=== PATIENT | female | born 1935 | race Caucasian/White ===

== ENCOUNTER 2018-11-11 21:21 | Emergency (ER) | payer MEDICARE ==
[~2018-11-11] VITALS: Ht 157.5 cm; Wt 61.2 kg
[2018-11-11] MEDS ORDERED: ACETAMINOPHEN 500 MG TAB (TYLENOL) PO ONE (22:00)
--- NOTE | 2018-11-11 22:28 | ED Fall/Injury ---
General Chief Complaint: Head/Cervical Problems Stated Complaint: FELL, HEAD INJ, HEADACHE,RIB PAIN Nursing Triage Note: PT. WAS LEAVING THE [facility]GENTINE REST. AND THINKS SHE CAUGHT HER SHOE ON THE CARPET AND SHE FELL. SHE HAS SWELLING ON THE LEFT SIDE OF HER FOREHEAD WITH BRUISING. SHE C/O HER LEFT BREAST WAS HURTING AND THE LEFT KNEE HAS A SMALL ABRASION. SHE DID NOT HAVE ANY LOC. Source: patient History of Present Illness Date Seen by Provider: Nov 11, 2018 Time Seen by Provider: 21:38 Initial Comments 83-year-old female presenting after having a fall around supper time. She denies losing consciousness. She felt that she had caught her shoe on the carpet and had fallen forward. She had primarily injured her left side of her body. She hit her left forehead and was having pain there as well as the left chest and left knee. She was able to get up and walk. She had gone home but then also had gone out with friends to play cards. While playing card she was feeling lightheaded and woozy. Because this her friends who brought her to the emergency department. She never had any vomiting. She states that she is not having any trouble with vision. She denies taking any blood thinners or aspirin. She also has not taken anything for the pain. Allergies and Home Medications Allergies Coded Allergies: Penicillins (Verified Allergy, Unknown, 11/11/18) Sulfa (Sulfonamide Antibiotics) (Verified Allergy, Unknown, 11/11/18) atorvastatin (Verified Allergy, Unknown, 11/11/18) celecoxib (Verified Allergy, Unknown, 11/11/18) morphine (Verified Allergy, Unknown, 11/11/18) ramipril (Verified Allergy, Unknown, 11/11/18) Patient Home Medication List Home Medication List Reviewed: Yes Review of Systems Review of Systems Constitutional: No chills, No fever, No malaise, No weakness Eyes: Denies Blurred Vision, Denies Drainage, Denies Decreased Acuity, Denies Photophobia, Denies Vision Changes Ears, Nose, Mouth, Throat: denies ear pain, denies ear discharge, denies nose pain, denies nose discharge, denies epistaxis, denies loose teeth Respiratory: No cough, No dyspnea on exertion, No short of breath Cardiovascular: chest pain (left-sided rib and chest wall pain) Gastrointestinal: no symptoms reported; No nausea, No vomiting Genitourinary: no symptoms reported Musculoskeletal: joint pain (left knee pain from where she landed) Skin: other (bruising to the left knee and left forehead) Psychiatric/Neurological: Headache; Denies Numbness, Denies Paresthesia, Denies Seizure, Denies Tingling, Denies Tremors, Denies Weakness Past Mbkzvlt-Rhksgf-Uvmvyf Hx Past Med/Social Hx: Reviewed Nursing Past Med/Soc Hx Patient Social History Recent Foreign Travel: No Contact w/Someone Who Travel: No Recent Infectious Disease Expo: No Physical Abuse: No Sexual Abuse: No Mistreated: No Fear: No Physical Exam Vital Signs Vital Signs - First Documented 11/11/18 11/11/18 21:29 23:36 Temp 97.7 Pulse 88 Resp 18 B/P (MAP) 181/68 (105) Pulse Ox 100 O2 Delivery Room Air Capillary Refill : Less Than 3 Seconds Height, Weight, BMI Height: 5'2.00" Weight: 135lbs. oz. 61.259950qn; BMI Method:Stated General Appearance: WD/WN, no apparent distress HEENT: PERRL/EOMI, normal ENT inspection, TMs normal, pharynx normal Neck: non-tender, full range of motion, supple, normal inspection Cardiovascular: normal peripheral pulses, regular rate, rhythm Respiratory: chest non-tender, lungs clear, normal breath sounds, no re spiratory distress, no accessory muscle use Gastrointestinal: normal bowel sounds, non tender, soft, no pulsatile mass Back: normal inspection, no CVA tenderness, no vertebral tenderness Extremities: normal range of motion, no calf tenderness, normal capillary refill, other (mild tenderness over her left patella where she has bruising from the fall) Neurologic/Psychiatric: director drug II-XII nml as tested, no motor/sensory deficits, alert, normal mood/affect, oriented x 3 Skin: warm/dry, other (mild bruising to her left patella and bruising and swelling to her left forehead) Winkelman Coma Score Best Eye Response: (4) Open Spontaneously Best Verbal Response: (5) Oriented Best Motor Response: (6) Obeys Commands Winkelman Total: 15 Progress/Results/Core Measures Results/Orders My Orders Orders - ENA SINGH MD Ct Head/Cervical Spine Wo (11/11/18 21:58) Ribs/Unilateral With Chest (6/2/19 21:58) Knee 3 View Left (11/11/18 21:58) Ice: Apply To Affected Area (11/11/18 21:58) Acetaminophen Tablet (Tylenol Tablet) (11/11/18 22:00) Medications Given in ED Current Medications Medications Dose Ordered Sig/Martha Route Start Time Stop Time Status Last Admin Dose Admin Acetaminophen 1,000 mg ONCE ONCE PO 11/11/18 22:00 11/11/18 22:01 DC 11/11/18 22:02 1,000 MG Vital Signs/I&O 11/11/18 11/11/18 21:29 23:36 Temp 97.7 97.7 Pulse 88 88 Resp 18 18 B/P (MAP) 181/68 (105) 181/68 (105) Pulse Ox 100 O2 Delivery Room Air Nasal Cannula Blood Pressure Mean: 105 Progress Progress Note #1: Progress Note Give Tylenol for pain. Ice and elevation of her head to help with pain and swelling. Check CT of her head and cervical spine to evaluate for fracture or intracranial hemorrhage. X-rays of her chest and left ribs to look for fractures. X-ray of her left knee to look for fractures Progress Note #2: Progress Note No acute abnormality seen on the head and cervical spine. The x-rays of the chest and ribs as well as the left knee were reviewed by myself and did not demonstrate any acute fracture or dislocation. Patient was counseled on results and stated that she was feeling better after the acetaminophen. Counseled on return and follow-up precautions. Diagnostic Imaging Diagonstic Imaging: Xray Plain Films/CT/US/NM/MRI: chest (and ribs) Comments I personally reviewed the chest x-ray and left rib films. On my review of the films there were no definite fractures or dislocations. There is no pneumothorax or acute infiltrate. Reviewed: Reviewed by Me Diagonstic Imaging: Xray Plain Films/CT/US/NM/MRI: knee (left) Comments No acute fracture or dislocation on my review of the 3 view films of the left knee. Hardware appears in place without damage Reviewed: Reviewed by Me Diagonstic Imaging: CT Plain Films/CT/US/NM/MRI: c-spine, head Comments CT head shows no acute findings and there is a remote infarct involving the right posterior frontal lobe. CT cervical spine shows no acute fracture or subluxation. Moderate multilevel cervical spondylosis. Radiologist was Dr. Jono Baca DO, Read at [id number] and faxed at [phone] Reviewed: Reviewed [place] Study Departure Impression Primary Impression: Concussion without loss of consciousness Qualified Codes: S06.0X0A - Concussion without loss of consciousness, initial encounter Additional Impressions: Traumatic hematoma of forehead Qualified Codes: S00.83XA - Contusion of other part of head, initial encounter Contusion of rib on left side Qualified Codes: S20.212A - Contusion of left front wall of thorax, initial encounter Contusion of left knee, initial encounter Fall Qualified Codes: W19.XXXA - Unspecified fall, initial encounter Disposition: HOME, SELF-CARE Condition: Stable Departure-Patient Inst. Decision time for Depature: 23:15 Referrals: KELIN SAMPSON MD (PCP/Family) Primary Care Physician Patient Instructions: Bruised Rib (DC), Contusion (DC), Minor Head Injury (DC), Concussion, Adult (DC) Add. Discharge Instructions: Stay well hydrated and get plenty of rest Check with clinic for continued concerns Ice 15-20 minutes every few hours as needed for pain and swelling Sleep with your head elevated 30-45 degrees to limit swelling and pain for the next few days. All discharge instructions reviewed with patient and/or family. Voiced understanding. ENA SINGH MD Nov 11, 2018 22:28
[2018-11-11 23:36] VITALS: BP 181/68
--- NOTE | 2018-11-12 06:22 | Diagnostic Imaging Report ---
INDICATION: Pain, swelling. COMPARISON: None available. TECHNIQUE: 3 radiographs of left knee dated 11/11/2018. 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 No acute fracture or dislocation. No destructive osseous process. No suspicious radiopaque foreign body. IMPRESSION: Left total knee arthroplasty without acute osseous abnormality. Dictated by: Dictated on workstation # [id number]
--- NOTE | 2018-11-12 06:23 | Diagnostic Imaging Report ---
INDICATION: Pain. COMPARISON: None available. TECHNIQUE: 4 radiographs of the chest and left-sided ribs dated 11/11/2018. FINDINGS: The cardiac silhouette is within normal in size. No significant pulmonary vascular congestion. Senescent changes in the lungs without focal pulmonary opacity. Metallic device is noted overlying the cardiac silhouette. No significant pleural effusion or pneumothorax. No displaced or healing rib fracture. IMPRESSION: No displaced or healing rib fracture. No significant pleural effusion or pneumothorax. Dictated by: Dictated on workstation # [id number]
--- NOTE | 2018-11-12 06:40 | Diagnostic Imaging Report ---
PROCEDURE: CT head and CT cervical spine without contrast. TECHNIQUE: Multiple contiguous axial images were obtained through the brain and cervical spine without the use of intravenous contrast. Sagittal and coronal reformations through the cervical spine were then performed. Auto Exposure Controls were utilized during the CT exam to meet ALARA standards for radiation dose reduction. INDICATION: Fall, pain. COMPARISON: None available. FINDINGS: No intracranial hemorrhage. Focal hypodensity is noted within the posterior aspect of the right frontal lobe with associated encephalomalacia. Mild bilateral calcifications within the basal ganglia. Chronic-appearing lacunar infarction within the right caudate head. No intracranial mass, mass effect, midline shift, herniation, hydrocephalus, or extra-axial fluid collection. No CT evidence of an acute ischemic infarction. Left periorbital soft tissue swelling. Bilateral ocular lenses are absent. The globes appear intact. The calvarium and extracalvarial soft tissues are otherwise unremarkable. The paranasal sinuses are clear. Minimal retrolisthesis of C4 on C5, appearing degenerative in nature. Alignment of the cervical spine is otherwise well maintained. Alignment of the atlanto-occipital joint is well maintained. Besides endplate degenerative changes, vertebral body heights are well maintained. Moderate to severe disc space height loss at C4/C5 and C5/C6 and C6/C7 with moderate disc space height loss at C3/C4 and C7/T1. 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 No acute fracture or dislocation. No destructive osseous process. Scattered facet joint degenerative changes and uncovertebral joint hypertrophy. There is resulting multilevel neuroforaminal stenosis, greatest at C3/C4 and C4/C5, particularly on the right where it is high-grade. High-grade left neuroforaminal stenosis also present at C5/C6. Multilevel central canal stenosis is also present throughout the cervical spine, particularly at C4/C5 and C5/C6. Calcified granuloma within the right upper lobe. Scattered vascular calcifications. IMPRESSION: 1. No acute intracranial abnormality. 2. No acute osseous abnormality within the cervical spine. 3. Chronic-appearing infarction within the right frontal lobe. 4. Left periorbital soft tissue swelling without underlying fracture. 5. Moderate to severe multilevel degenerative changes. Agree with preliminary interpretation. Dictated by: Dictated on workstation # [id number]
== END 2018-11-11 23:37 | disposition home or self-care (01) ==
LOC: EDUNIT# 21:21 → ER FS 21:23
DX: S06.0X0A Concussion without loss of consciousness, initial encounter (principal); S20.212A Contusion of left front wall of thorax, initial encounter; S80.02XA Contusion of left knee, initial encounter; R40.2142 Coma scale, eyes open, spontaneous, at arrival to emergency department; R40.2252 Coma scale, best verbal response, oriented, at arrival to emergency department; R40.2362 Coma scale, best motor response, obeys commands, at arrival to emergency department; Z88.0 Allergy status to penicillin; Z88.2 Allergy status to sulfonamides; Z88.1 Allergy status to other antibiotic agents; Z88.5 Allergy status to narcotic agent; Z88.8 Allergy status to other drugs, medicaments and biological substances; W01.0XXA Fall on same level from slipping, tripping and stumbling without subsequent striking against object, initial encounter; Y92.511 Restaurant or cafe as the place of occurrence of the external cause
CPT/HCPCS: 70450; 71101; 72125; 73562

== ENCOUNTER 2018-11-13 14:06 | Emergency (ER) | payer MEDICARE ==
[~2018-11-13] VITALS: Ht 157.5 cm; Wt 61.2 kg
[2018-11-13] MEDS ORDERED: ACETAMINOPHEN 325 MG TABLET PO ONE (14:30)
--- NOTE | 2018-11-13 14:45 | NUR ---
Pt was initially triaged by PCCT for RN with vitals and chief c/o 1415. RN to room to greet pt and give Tylenol 975 mg po as per Dr order for c/o headache continued since fall11/11/18 when evaluated in ER and released. Pt spoke with her PCP that recommended her to return to ER.
--- NOTE | 2018-11-13 15:24 | ED Head Injury ---
General Chief Complaint: Head/Cervical Problems Stated Complaint: BALANCE ISSUE, FEELS FOGGY History of Present Illness Date Seen by Provider: Nov 13, 2018 Time Seen by Provider: 14:00 Initial Comments The patient is an 83-year-old female with a history of hypertension and hyperlipidemia as well as acid reflux, not on any blood thinners. 2 days ago she had a ground-level fall after tripping on some carpet at home and sustained a left periorbital contusion. She was seen here in the [facility] emergency in [facility] and CT scan of head and cervical spine were without evidence of acute process and the patient was discharged home to follow-up. Today she called her primary care physician reporting some persistent head pain and a feeling of "fogginess" at times, although she has not had any vomiting and is alert and oriented 4 and pleasantly and appropriately interactive on initial evaluation the emergency department. Her primary care physician instructed her to come to the emergency department for a repeat CT scan of her head. She denies any other symptoms today and specifically denies fevers, nausea or vomiting, focal weakness, numbness, tingling, neck stiffness, vision changes, shortness of breath or chest pain, severe pain to any other part of her body. Allergies and Home Medications Allergies Coded Allergies: Penicillins (Verified Allergy, Unknown, 11/11/18) Sulfa (Sulfonamide Antibiotics) (Verified Allergy, Unknown, 11/11/18) atorvastatin (Verified Allergy, Unknown, 11/11/18) celecoxib (Verified Allergy, Unknown, 11/11/18) morphine (Verified Allergy, Unknown, 11/11/18) ramipril (Verified Allergy, Unknown, 11/11/18) Patient Home Medication List Home Medication List Reviewed: Yes Review of Systems Review of Systems Constitutional: see HPI All Other Systems Reviewed Negative Unless Noted: Yes Past Ycbuczn-Lsemqp-Htwvea Hx Past Med/Social Hx: Reviewed Nursing Past Med/Soc Hx Family Medical History Reviewed Nursing Family Hx Physical Exam Vital Signs Capillary Refill : Height, Weight, BMI Height: 5'2.00" Weight: 135lbs. oz. 61.495279zr; BMI Method:Stated General Appearance: no apparent distress This is an elderly female appearing nontoxic and in no acute distress. Head is normocephalic and with a developing/healing left periorbital contusion. Neck is supple and nontender. Oropharynx is moist. Lungs are clear to auscul tation at all stations. There is normal S1 and S2 without rubs or gallops and capillary refill is appropriate, less than 2 seconds globally. Abdomen is soft, nontender nondistended. Skin is warm and dry without cyanosis, clubbing or edema. Psychiatrically, patient demonstrates appropriate mood and affect and is alert. From a neurologic standpoint, cranial nerves II through XII are intact and there are no lateralizing deficits noted. Speech is normal. Leg which is normal. Coordination is normal. There is no dysmetria with finger to nose and heel to pereyra bilaterally. Strength is 5 out of 5 in all joints of bilateral upper and lower extremities. Sensation is intact light touch in bilateral upper and lower extremity. The patient Mo[place] to the narrow, steady gait. She is alert and oriented 4. Progress/Results/Core Measures Results/Orders My Orders Orders - LUKASZ ELLIS MD Ct Head Wo (11/13/18 14:25) Acetaminophen Tablet/Caplet (Tylenol T (11/13/18 14:30) Medications Given in ED Current Medications Medications Dose Ordered Sig/Martha Route Start Time Stop Time Status Last Admin Dose Admin Acetaminophen 975 mg ONCE ONCE PO 11/13/18 14:30 11/13/18 14:31 DC 11/13/18 14:45 975 MG Comment Clinical examination reassuringelderly patient with a ground-level fall a few days ago, now with healing left periorbital contusion and some mild symptoms suggestive of concussion. CT head is negative today for evidence of any acute process. Patient feels comfortable going home and using Tylenol as needed for her symptoms. She is to follow-up with her primary care physician in next 1-2 days and return immediately if symptoms worsen or other new symptoms or concerns develop. All cushions are answered. We'll proceed with discharge home at this time. Diagnostic Imaging Diagonstic Imaging: CT Comments CT HEAD WO CLINICAL INDICATION: Patient status post fall on 11/11/2018. Patient still not feeling right. EXAM: Axial CT scan of the brain performed without IV contrast. COMPARISON: CT scan of the brain without contrast dated 11/11/2018. FINDINGS: There is no evidence of interval acute cerebral infarct, intracranial hemorrhage, brain herniation, or midline shift. There is no hydrocephalus. Stable small chronic cerebral infarct involving the posterior right frontal lobe. The brain parenchymal volume appears appropriate for patient's age. Basal cisterns are unremarkable. The extracranial soft tissue, skull, and orbits are unremarkable. Paranasal sinuses and mastoid air cells are unremarkable. IMPRESSION: 1: Stable CT scan of the brain with no evidence of acute intracranial process. 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 Dictated on workstation # [id number] Departure Impression Primary Impression: Brain concussion Qualified Codes: S06.0X0A - Concussion without loss of consciousness, initia l encounter Disposition: HOME, SELF-CARE Condition: Improved Departure-Patient Inst. Referrals: KELIN SAMPSON MD (PCP/Family) Primary Care Physician Patient Instructions: Concussion, Adult (DC) Add. Discharge Instructions: Follow-up very closely with her primary care physician in the next 1-2 days. Return immediately if symptoms worsen or if other new symptoms of concern develop. You may take Tylenol as needed for symptoms as discussed. LUKASZ ELLIS MD Nov 13, 2018 15:24
--- NOTE | 2018-11-13 15:38 | Diagnostic Imaging Report ---
CLINICAL INDICATION: Patient status post fall on 11/11/2018. Patient still not feeling right. EXAM: Axial CT scan of the brain performed without IV contrast. COMPARISON: CT scan of the brain without contrast dated 11/11/2018. FINDINGS: There is no evidence of interval acute cerebral infarct, intracranial hemorrhage, brain herniation, or midline shift. There is no hydrocephalus. Stable small chronic cerebral infarct involving the posterior right frontal lobe. The brain parenchymal volume appears appropriate for patient's age. Basal cisterns are unremarkable. The extracranial soft tissue, skull, and orbits are unremarkable. Paranasal sinuses and mastoid air cells are unremarkable. IMPRESSION: 1: Stable CT scan of the brain with no evidence of acute intracranial process. 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 Dictated by: Dictated on workstation # [id number]
[2018-11-13 16:24] VITALS: BP 129/41
== END 2018-11-13 16:24 | disposition home or self-care (01) ==
LOC: EDUNIT# 14:06 → ER FS 14:08
DX: S06.0X0A Concussion without loss of consciousness, initial encounter (principal); I10 Essential (primary) hypertension; E78.5 Hyperlipidemia, unspecified; K21.9 Gastro-esophageal reflux disease without esophagitis; Z88.0 Allergy status to penicillin; Z88.2 Allergy status to sulfonamides; Z88.1 Allergy status to other antibiotic agents; Z88.5 Allergy status to narcotic agent; Z88.8 Allergy status to other drugs, medicaments and biological substances; W01.0XXA Fall on same level from slipping, tripping and stumbling without subsequent striking against object, initial encounter; Y92.009 Unspecified place in unspecified non-institutional (private) residence as the place of occurrence of the external cause
CPT/HCPCS: 70450

== ENCOUNTER → 2018-12-05 | Outpatient (CLI) | payer MEDICARE ==
--- NOTE | 2018-12-05 10:40 | Diagnostic Imaging Report ---
PROCEDURE: CT head without contrast. TECHNIQUE: Multiple contiguous axial images were obtained through the brain without the use of intravenous contrast. Auto Exposure Controls were utilized during the CT exam to meet ALARA standards for radiation dose reduction. INDICATION: Head injury 3 weeks ago with balance disturbance. COMPARISON: Comparison is made with head CT from 11/13/2018. FINDINGS: The ventricles and sulci are within normal limits. There is an area of encephalomalacia in the right middle cerebral artery territory consistent with prior infarct. This is similar to prior exam. No sulcal effacement or midline shift is seen. No acute intra-axial or extra-axial hemorrhage is detected. Cisterns are patent. Visualized paranasal sinuses are clear. IMPRESSION: Stable chronic changes. No acute intracranial process is detected. Dictated by: Dictated on workstation # [id number]
== END ==
LOC: RAD FS 10:21
PROVIDERS: ATTEND Family Medicine
DX: S09.90XA Unspecified injury of head, initial encounter (principal); I69.993 Ataxia following unspecified cerebrovascular disease
CPT/HCPCS: 70450

== ENCOUNTER → 2018-12-17 | Outpatient (CLI) | payer MEDICARE ==
--- NOTE | 2018-12-17 12:01 | Diagnostic Imaging Report ---
PROCEDURE: CT cervical spine without contrast. TECHNIQUE: Multiple contiguous axial images were obtained through the cervical spine without the use of intravenous contrast. Sagittal and coronal reformations were then performed. Auto Exposure Controls were utilized during the CT exam to meet ALARA standards for radiation dose reduction. INDICATION: Fall sustained six weeks ago, has had continuous pain and stiffness in the neck since that insult. COMPARISON: I have no priors. FINDINGS: There is incomplete fusion of the posterior ring of C1 as an incidental variant. The skull base appeared intact. There is no mastoid effusion. Reconstruction views showed some straightening of cervical lordosis with slight retrolisthesis of C4 on C5, grade 1, believed to be on a degenerative basis. No cervical fracture or paravertebral hematoma is present. No bony destructive process. Some biapical pleural-parenchymal scarring, partly calcified on the right as a chronic finding. There are atherosclerotic vascular calcifications, left greater than right carotids. The prevertebral and retropharyngeal spaces appeared unremarkable. Degenerative changes throughout the cervical spine involve discs, endplates, facets, and uncovertebral joints with multilevel stenoses. C1-C2 level revealed no convincing evidence of canal or substantial foraminal encroachment. C2-C3: Facet arthrosis and uncovertebral joint spurring result in moderate severity of right-sided foraminal stenosis and mild left foraminal narrowing with mild canal stenosis. C3-C4: Bony hypertrophy results in aicq-qi-zdeblgry left and fxtmdgyw-ux-xhqpra right foraminal stenosis with moderate central canal narrowing. C4-C5: Endplate osteophytes, disc material, and facet arthrosis result in severe central canal and severe biforaminal stenoses. C5-C6: There is rzlpvuhb-un-bunbdt central canal stenosis with endplate osteophytes and bulging partly calcified disc material. There is severe left and moderate right neuroforaminal narrowing. C6-C7: There is right and mild left foraminal stenosis in addition to xuko-tc-xjjcpevu canal narrowing. C7-T1: There is no substantial canal stenosis. The left neuroforamen is at least mildly narrowed. IMPRESSION: 1. No cervical fracture or traumatic malalignment. 2. Advanced degenerative changes throughout the cervical spine with substantial multilevel canal and foraminal stenoses, listed level by level above. 3. Carotid atherosclerotic vascular disease. Dictated by: Dictated on workstation # [id number]
== END ==
LOC: RAD FS 10:24
PROVIDERS: ATTEND Nurse Practitioner Family
DX: M47.812 Spondylosis without myelopathy or radiculopathy, cervical region (principal); I65.29 Occlusion and stenosis of unspecified carotid artery; M48.02 Spinal stenosis, cervical region
CPT/HCPCS: 72125

== ENCOUNTER 2019-04-17 13:05 | Emergency (ER) | payer MEDICARE ==
[~2019-04-17] VITALS: Ht 157.4 cm; Wt 63.1 kg
--- NOTE | 2019-04-17 13:53 | ED General ---
General Chief Complaint: Dizziness/Syncope Stated Complaint: HEADACHE; HEAD PRESSURE; LIGHT HEADED Source of Information: Patient Exam Limitations: No Limitations History of Present Illness Date Seen by Provider: Apr 17, 2019 Time Seen by Provider: 13:45 Initial Comments Patient presents with onset of dizziness when she woke up this morning. States that she felt on steady and off balance when she stood up, but that it got better and she was able to go about the house as she needed to. A few hours later she states it came back and she was dizzy again with some pressure type headache on top of her head. Admits history of vertigo in the past, although infrequent. Does not take medicine for vertigo. Denies any weakness, speech difficulty or confusion. No recent illness, denies fever or chills. Allergies and Home Medications Allergies Coded Allergies: Penicillins (Verified Allergy, Unknown, 11/11/18) Sulfa (Sulfonamide Antibiotics) (Verified Allergy, Unknown, 11/11/18) atorvastatin (Verified Allergy, Unknown, 11/11/18) celecoxib (Verified Allergy, Unknown, 11/11/18) morphine (Verified Allergy, Unknown, 11/11/18) ramipril (Verified Allergy, Unknown, 11/11/18) Home Medications Meclizine HCl 25 Mg Tablet, 25 MG PO Q6H PRN for VERTIGO Prescribed by: LUIS ZAMARRIPA on 04/17/19 1407 Patient Home Medication List Home Medication List Reviewed: Yes Review of Systems Review of Systems Constitutional: No chills, No diaphoresis; dizziness; No fever, No malaise, No weakness, No weight gain, No weight loss EENTM: no symptoms reported; No ear discharge, No ear pain, No blurred vision, No double vision, No eye pain, No hoarseness, No epistaxis, No nose congestion, No nose pain, No throat pain, No throat swelling Respiratory: No cough, No dyspnea on exertion, No wheezing Cardiovascular: No chest pain, No palpitations Gastrointestinal: No diarrhea, No loss of appetite, No nausea, No vomiting Musculoskeletal: No back pain, No joint pain Skin: No change in color, No rash Psychiatric/Neurological: Headache; Denies Numbness, Denies Paresthesia, Denies Pre-Existing Deficit, Denies Seizure, Denies Tremors, Denies Weakness Past Odclifq-Tzolxy-Wugbdt Hx Past Med/Social Hx: Reviewed Nursing Past Med/Soc Hx Patient Social History Recent Foreign Travel: No Recent Hopitalizations: No Seasonal Allergies Seasonal Allergies: No Past Medical History Surgeries: Yes (LAVH W/ BSO, ANTERIOR REPAIR, SSLS, PBS/CYSTO) Bladder Surgery, Hysterectomy Respiratory: No Cardiac: Yes Hypertension 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 oz. 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 Norm as Tested; No Abnormal Gait, No Aphasia, No Depressed Affect, No Disoriented, No Facial Droop, No Motor Weakness, No Sensory Deficit Skin: Normal Color, Warm/Dry; No Petechia, No Rash Progress/Results/Core Measures Suspected Sepsis SIRS Temperature: Pulse: Respiratory Rate: Blood Pressure / Mean: Results/Orders My Orders Orders - ROVENSTINELUIS DO Ct Head Wo (04/17/19 13:37) Meclizine Tablet (Antivert Tablet) (04/17/19 14:15) Medications Given in ED Current Medications Medications Dose Ordered Sig/Martha Route Start Time Stop Time Status Last Admin Dose Admin Meclizine HCl 25 mg ONCE ONCE PO 04/17/19 14:15 04/17/19 14:15 DC 04/17/19 14:13 25 MG Vital Signs/I&O 04/17/19 04/17/19 13:05 14:15 Temp 36.6 36.6 Pulse 76 76 Resp 16 16 B/P (MAP) 186/59 (101) 186/59 (101) Pulse Ox 98 98 O2 Delivery Room Air Capillary Refill : Departure Impression Primary Impression: Dizziness Disposition: 01 HOME, SELF-CARE Condition: Stable Departure-Patient Inst. Decision time for Depature: 14:10 Referrals: KELIN SAMPSON MD (PCP/Family) Primary Care Physician Patient Instructions: Vertigo (a Type of Dizziness) (DC) Scripts Meclizine HCl (Meclizine HCl) 25 Mg Tablet 25 MG PO Q6H PRN for VERTIGO, #20 TAB Prov: LUIS ZAMARRIPA DO 04/17/19 LUIS ZAMARRIPA DO Apr 17, 2019 13:53 POS
--- NOTE | 2019-04-17 13:57 | Diagnostic Imaging Report ---
PROCEDURE: CT head without contrast. TECHNIQUE: Multiple contiguous axial images were obtained through the brain without the use of intravenous contrast. Auto Exposure Controls were utilized during the CT exam to meet ALARA standards for radiation dose reduction. INDICATION: Pain and elevated head pressure, falling, stroke was sustained in 1999. COMPARISON: Study compared to 12/05/2018. 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 No findings of focal or generalized cerebral edema. There is no evidence for cerebral hemorrhage. Some mild periventricular white matter small vessel sequelae and intracranial atherosclerotic vascular calcifications are chronic. No significant volume loss. No hydrocephalus. No hemorrhage. No acute-appearing abnormality. IMPRESSION: Stable chronic findings. Dictated by: Dictated on workstation # [id number]
[2019-04-17] MEDS ORDERED: MECL-106 PO (14:07)
[2019-04-17 14:15] VITALS: BP 186/59
[2019-04-17] MEDS ORDERED: MECLIZINE 25 MG (ANTIVERT) TAB PO ONE (14:15)
== END 2019-04-17 14:15 | disposition home or self-care (01) ==
LOC: EDUNIT# 13:05 → ER FS 13:07
DX: R42 Dizziness and giddiness (principal); I10 Essential (primary) hypertension; K21.9 Gastro-esophageal reflux disease without esophagitis; Z88.0 Allergy status to penicillin; Z88.2 Allergy status to sulfonamides; Z88.5 Allergy status to narcotic agent; Z88.8 Allergy status to other drugs, medicaments and biological substances; Z90.710 Acquired absence of both cervix and uterus
CPT/HCPCS: 70450

== ENCOUNTER → 2020-04-27 | Outpatient (CLI) | payer MEDICARE ==
[~2020-04-27] MED LIST: MECL-149 PO
== END ==
LOC: CARD 14:00
PROVIDERS: ATTEND Family Medicine
DX: I34.0 Nonrheumatic mitral (valve) insufficiency (principal); I35.8 Other nonrheumatic aortic valve disorders
CPT/HCPCS: 93306

== ENCOUNTER → 2021-05-08 | Outpatient (CLI) | payer MEDICARE ==
[2021-05-08 16:06] LABS: CLARITY,URINE CLOUDY; COLOR,URINE YELLOW; GLUCOSE, URINE (UA) NEGATIVE (NEGATIVE); KETONES,URINE NEGATIVE (NEGATIVE); PROTEIN,URINE TRACE (NEGATIVE)
[2021-05-08 16:07] LABS: BACTERIA,URINE NEGATIVE /HPF; BILIRUBIN,URINE NEGATIVE (NEGATIVE); LEUKOCYTE ESTERASE ,URINE 1+ (NEGATIVE); NITRITE,URINE NEGATIVE (NEGATIVE); WBC,URINE TNTC /HPF
== END ==
LOC: PVFS 15:30
PROVIDERS: ATTEND Family Medicine
DX: R35.0 Frequency of micturition (principal); R30.9 Painful micturition, unspecified
CPT/HCPCS: 81000; 87088

== ENCOUNTER 2022-03-01 23:33 | Emergency (ER) | payer MEDICARE ==
[~2022-03-01] VITALS: Ht 157.4 cm; Wt 56.2 kg
[2022-03-01] MEDS ORDERED: ACETAMINOPHEN 500 MG TAB (TYLENOL) PO ONE (23:45)
[2022-03-01] MEDS ORDERED: diphenhydrAMINE 25 MG TAB (BENADRYL) PO ONE (23:45)
--- NOTE | 2022-03-01 23:46 | ED General ---
General Chief Complaint: Oral/Throat Problems Stated Complaint: POSS ALLERGIC REACTION Source of Information: Patient, EMS Exam Limitations: No Limitations History of Present Illness Date Seen by Provider: Mar 01, 2022 Time Seen by Provider: 23:35 Initial Comments 86-year-old female that recently was diagnosed with a perirectal abscess started on clindamycin recently coming in due to concerns for an allergic reaction. She felt like after her 7 PM dose her throat started to feel scratchy and her lips started to feel like they are a little bit more red than usual. Denies any rash anywhere, wheezing, vomiting, chest pain, shortness of breath, abdominal pain, nausea, diarrhea, weakness, numbness, or any other concerns. Has tolerated the antibiotic in the past without difficulty. Allergies and Home Medications Allergies Coded Allergies: Penicillins (Verified Allergy, Unknown, 11/11/18) Sulfa (Sulfonamide Antibiotics) (Verified Allergy, Unknown, 11/11/18) atorvastatin (Verified Allergy, Unknown, 11/11/18) celecoxib (Verified Allergy, Unknown, 11/11/18) morphine (Verified Allergy, Unknown, 11/11/18) ramipril (Verified Allergy, Unknown, 11/11/18) Patient Home Medication List Home Medication List Reviewed: Yes Meclizine HCl (Meclizine HCl) 25 Mg Tablet, 25 MG PO Q6H PRN for VERTIGO Prescribed by: LUIS ZAMARRIPA on 04/17/19 4897 Review of Systems Review of Systems Constitutional: No fever EENTM: see HPI Respiratory: no symptoms reported Cardiovascular: no symptoms reported Gastrointestinal: no symptoms reported Genitourinary: no symptoms reported Musculoskeletal: no symptoms reported Skin: no symptoms reported Psychiatric/Neurological: No Symptoms Reported Hematologic/Lymphatic: No Symptoms Reported Immunological/Allergic: no symptoms reported All Other Systems Reviewed Negative Unless Noted: Yes Past Tsoroyu-Rizyba-Dajtkv Hx Patient Social History Tobacco Use?: No Seasonal Allergies Seasonal Allergies: No Past Medical History Surgeries: Yes (LAVH W/ BSO, ANTERIOR REPAIR, SSLS, PBS/CYSTO) Bladder Surgery, Cardiac, Hysterectomy Respiratory: No Cardiac: Yes Hypertension 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 oz. 61.475053hw; 25.00 BMI Method:Stated General Appearance: No Apparent Distress, WD/WN Eyes: Bilateral Eye Normal Inspection, Bilateral Eye PERRL, Bilateral Eye EOMI HEENT: PERRL/EOMI, Normal ENT Inspection, Pharynx Normal Neck: Full Range of Motion, Normal Inspection, Non Tender, Supple Respiratory: Chest Non Tender, Lungs Clear, Normal Breath Sounds, No Accessory Muscle Use, No Respiratory Distress Cardiovascular: Regular Rate, Rhythm, No Edema, Normal Peripheral Pulses Gastrointestinal: Normal Bowel Sounds, Non Tender, Soft; No Distended, No Guarding Back: Normal Inspection Extremity: Normal Capillary Refill, Normal Inspection, Normal Range of Motion, Non Tender, No Calf Tenderness, No Pedal Edema Neurologic/Psychiatric: Alert, No Motor/Sensory Deficits, Normal Mood/Affect Skin: Normal Color, Warm/Dry Lymphatic: No Adenopathy Progress/Results/Core Measures Suspected Sepsis SIRS Temperature: Pulse: Respiratory Rate: Blood Pressure / Mean: Results/Orders My Orders Orders - DREW REID MD Acetaminophen Tablet (Tylenol Tablet) (03/01/22 23:45) Diphenhydramine Tablet (Benadryl Tablet) (03/01/22 23:45) Medications Given in ED Current Medications Medications Dose Ordered Sig/Martha Route Start Time Stop Time Status Last Admin Dose Admin Acetaminophen 1,000 mg ONCE ONCE PO 03/01/22 23:45 03/01/22 23:46 DC 03/01/22 23:52 1,000 MG Diphenhydramine HCl 12.5 mg ONCE ONCE PO 03/01/22 23:45 03/01/22 23:46 DC 03/01/22 23:52 12.5 MG Vital Signs/I&O 03/01/22 23:35 Temp 36.5 Pulse 75 Resp 15 B/P (MAP) 187/68 (107) Pulse Ox 98 O2 Delivery Room Air Capillary Refill : Progress Note : Progress Note 86-year-old female with above history coming in to check to see if she is having allergic reaction. ABCs were intact and vitals were stable on presentation. Her oropharynx appears normal to me, she is breathing comfortably, I do not see any rash, or any other signs of any type of allergic reaction. We will give her some Tylenol for her sore throat and 12 and half milligrams of Benadryl to see if that will help with any itching in her throat. We will continue to monitor her and reevaluate for any signs of allergic reaction. On repeat exam her throat and lips continue to appear normal. I am not seeing any changes in her skin at all. Unclear what exactly she is feeling, but it does not appear like an allergic reaction. I will have her continue to monitor at home. She can try Claritin for the scratchy throat. Departure Impression Primary Impression: Throat discomfort Disposition: 01 HOME, SELF-CARE Condition: Stable Departure-Patient Inst. Decision time for Depature: 00:14 Referrals: KELIN SAMPSON MD (PCP/Family) Primary Care Physician Patient Instructions: Sore Throat, Adult ED Add. Discharge Instructions: We are not detecting any signs of an allergic reaction. Continue to monitor yourself for any rash across her body. You can try the Claritin for the scratchy throat. Continue to use eyedrops for dry eyes. Follow-up with your doctor in the next couple days if things are not improving. DREW REID MD Mar 01, 2022 23:46
[2022-03-02 01:10] VITALS: BP 164/54
== END 2022-03-02 01:10 | disposition home or self-care (01) ==
LOC: EDUNIT# 23:33 → ER FS 23:37
DX: R07.0 Pain in throat (principal); Z28.310 Unvaccinated for COVID-19
CPT/HCPCS: 99283

== ENCOUNTER → 2022-08-19 | Outpatient (CLI) | payer MEDICARE ==
--- NOTE | 2022-08-19 17:00 | Diagnostic Imaging Report ---
Clinical Indication: Patient with hematuria. Exam: KUB x-ray. Comparison: None. Findings: There are no focal calcifications overlying the expected regions/ pathways of both kidneys. There are vascular calcifications in the pelvis bilaterally. Phleboliths are suspected. There is a nonobstructed bowel gas pattern. There is no evidence of abdominal free air. There are 2 calcifications overlying the right upper quadrant region. There are degenerative spurs involving the lumbar spine. Impression: 1: There is no stone seen overlying the region of the kidneys. There are calcifications over the pelvis which appear to be vascular. If there is continued concern for urinary tract stone, CT scan would better evaluate. 2: Suspected cholelithiasis. Dictated by: Dictated on workstation # [id number]
== END ==
LOC: RAD FS 10:27
PROVIDERS: ATTEND Urology
DX: N73.8 Other specified female pelvic inflammatory diseases (principal); R31.9 Hematuria, unspecified
CPT/HCPCS: 74018

== ENCOUNTER 2022-09-21 06:31 | Outpatient (CLI) | payer MEDICARE ==
[~2022-09-21] VITALS: Ht 157.5 cm; Wt 54.7 kg
[2022-09-26] MEDS ORDERED: HYDR12.56 PO (15:14)
[2022-09-26] MEDS ORDERED: NITR-65 PO (15:14)
[2022-09-26] MEDS ORDERED: ESOM20CA PO (15:14)
[2022-09-26] MEDS ORDERED: LACT1CAP39 PO (15:14)
[2022-09-26] MEDS ORDERED: ALPR0.254 PO (15:14)
[2022-09-26] MEDS ORDERED: LOSA50TA63 PO (15:14)
[2022-09-26] MEDS ORDERED: ATOR20TA66 PO (15:14)
== END 2022-09-26 15:16 | disposition home or self-care (01) ==
LOC: PREOP 06:31
PROVIDERS: ATTEND Surgery
DX: Z01.818 Encounter for other preprocedural examination (principal)

== ENCOUNTER 2022-09-30 16:20 | Emergency (ER) | payer MEDICARE ==
[~2022-09-30] VITALS: Ht 160 cm; Wt 54.4 kg
[~2022-09-30 16:20] MED LIST changes: +ALPR0.254 PO; +ATOR20TA66 PO; +ESOM20CA PO; +HYDR12.56 PO; +LACT1CAP39 PO; +LOSA50TA63 PO; +NITR-65 PO
[2022-09-30 16:22] VITALS: BP 175/72
--- NOTE | 2022-09-30 17:01 | ED Hip Pain/Injury ---
General Chief Complaint: Hip/Pelvic Problems Stated Complaint: FELL,PELVIC PAIN Nursing Triage Note: Patient reports she lost her balance and fell, landing on her right hip. Patient states she was seen at walk-in care and diagnosed with a pubic ramus fracture, then referred to the ED for treatment advice. Source: patient History of Present Illness Date Seen by Provider: Sep 30, 2022 Time Seen by Provider: 16:25 Initial Comments 87-year-old female presenting from urgent care at [facility]. She states that this morning she had lost her balance and fell landing on her right hip and buttocks. [facility] [employer] She denies hitting her head or losing consciousness. She did have a small abrasion to her right elbow. She is able to walk and bear weight but it is painful. She has pain in her groin and right hip. She reports they did an x-ray and told her that she had fractured her pelvis and needed to come to the emergency department. Patient reports taking 400 mg of ibuprofen at approximately 1:30 PM to help with pain. She states her pain currently is tolerable as long as she is not trying to bear weight or moving her leg Timing/Duration: this morning Severity: moderate Location: hip (R), pelvis Method of Injury: fell Modifying Factors: Worse With Movement; Improves With Pain Medication Associated Symptoms: No fatigue, No fever, No groin pain, No pain radiating to knees; trouble walking (Due to pain in the right hip) Allergies and Home Medications Allergies Coded Allergies: Penicillins (Verified Allergy, Unknown, 11/11/18) Sulfa (Sulfonamide Antibiotics) (Verified Allergy, Unknown, 11/11/18) atorvastatin (Verified Allergy, Unknown, 11/11/18) celecoxib (Verified Allergy, Unknown, 11/11/18) morphine (Verified Allergy, Unknown, 11/11/18) ramipril (Verified Allergy, Unknown, 11/11/18) Patient Home Medication List Home Medication List Reviewed: Yes ALPRAZolam (ALPRAZolam) 0.25 Mg Tablet, 0.25 MG PO PRN, (Reported) Entered as Reported by: VIOLETTA BLAKE on 09/26/221513 Atorvastatin Calcium (Atorvastatin Calcium) 20 Mg Tablet, 20 MG PO DAILY, (Reported) Entered as Reported by: VIOLETTA BLAKE on 09/26/221513 Esomeprazole Magnesium (Nexium) 20 Mg Capsule.dr, 20 MG PO DAILY, (Reported) Entered as Reported by: VIOLETTA BLAKE on 09/26/221513 Hydrochlorothiazide (Hydrochlorothiazide) 12.5 Mg Tablet, 12.5 MG PO DAILY, (Reported) Entered as Reported by: VIOLETTA BLAKE on 09/26/221513 Lactobacillus Rhamnosus GG (Culturelle) 10 Billion Cell Capsule, 1 EACH PO DAILY, (Reported) Entered as Reported by: VIOLETTA BLAKE on 09/26/221513 Losartan Potassium (Losartan Potassium) 50 Mg Tablet, 50 MG PO DAILY, (Reported) Entered as Reported by: VIOLETTA LBAKE on 09/26/221513 Nitrofurantoin Monohyd/M-Cryst (Macrobid 100 mg Capsule) 100 Mg Capsule, 1 TAB PO DAILY, (Reported) Entered as Reported by: VIOLETTA BLAKE on 09/26/221513 Discontinued Medications Meclizine HCl (Meclizine HCl) 25 Mg Tablet, 25 MG PO Q6H PRN for VERTIGO Discontinued Reason: No Longer Taking Prescribed by: LUIS ZAMARRIPA on 04/17/19 1407 Review of Systems Constitutional: No chills, No dizziness, No fever EENTM: no symptoms reported Respiratory: no symptoms reported Cardiovascular: no symptoms reported Gastrointestinal: no symptoms reported Genitourinary: no symptoms reported Musculoskeletal: see HPI Skin: see HPI; No change in color; other (Superficial abrasion to the right pos terior elbow no active bleeding) Psychiatric/Neurological: Denies Headache, Denies Numbness, Denies Weakness Past Hztbohj-Uacvvy-Iticzo Hx Patient Social History Tobacco Use?: No Substance use?: No Alcohol Use?: No Pt feels they are or have been: No Immunizations Up To Date First/Initial COVID19 Vaccinat: Moderna Second COVID19 Vaccination Louis: Modern Third COVID19 Vaccination Date: Seasonal Allergies Seasonal Allergies: No Past Medical History Surgery/Hospitalization HX: HTN, heart murmur Surgeries: Yes (LAVH W/ BSO, ANTERIOR REPAIR, SSLS, PBS/CYSTO) Bladder Surgery, Cardiac, Hysterectomy, Orthopedic Respiratory: No Cardiac: Yes (CARDIAC UMBRELLA PATCH) High Cholesterol, Hypertension 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 oz. 61.276692nt; 21.00 BMI Method:Stated General Appearance: No Apparent Distress, WD/WN Cardiovascular: Regular Rate, Rhythm, Normal Peripheral Pulses Extremity: No Pedal Edema Neurologic/Psychiatric: Alert, Oriented x3 Skin: Warm/Dry Progress/Results/Core Measures Results/Orders Vital Signs/I&O 09/30/22 16:22 Temp 37.1 Pulse 87 Resp 18 B/P (MAP) 175/72 (106) Pulse Ox 100 O2 Delivery Room Air Blood Pressure Mean: 106 Progress Progress Note : Progress Note I reviewed the pelvis x-ray and right hip x-ray from [facility]. Patient did have mildly displaced inferior and superior pubic ramus fracture on the right side. I did not appreciate any actual hip fracture. I counseled the patient that with her having her pain under control at this time and able to bear weight she should be okay at home using a walker for weightbearing as tolerated. Continue daily activities limited by her pain level. Continue with acetaminophen [id number]-[id number] up to 650 mg every 4 hours as needed for severe pain. May also take ibuprofen up to 400 mg every 4 hours as needed for severe pain. Advised she could try applying ice to help with the pain. She may develop some bruising from the fracture and that would be normal. If she has increasing pain develops numbness or unable to use her right leg she should be reevaluated right away. Otherwise use a walker and she states that she has 1 at home from when she had her knee replacement surgeries done. She also had checked with the [facility] and they had more advanced type sitdown walkers that she could rent from them. Advised to check back with primary care or orthopedics if having continued concerns. It will take at least 6 to 8 weeks for bones to heal in general. The worst of her pain will usually be in the first few days to a week. Departure Impression Primary Impression: Closed fracture of superior ramus of right pubis Qualified Codes: S32.511A - Fracture of superior rim of right pubis, initial encounter for closed fracture Additional Impressions: Closed fracture of right inferior pubic ramus Qualified Codes: S32.591A - Other specified fracture of right pubis, initial encounter for closed fracture Fall as cause of accidental injury at home as place of occurrence Qualified Codes: W19.XXXA - Unspecified fall, initial encounter; Y92.009 - Unspecified place in unspecified non-institutional (private) residence as the place of occurrence of the external cause Abrasion of right elbow, initial encounter Disposition: HOME, SELF-CARE Condition: Stable Departure-Patient Inst. Decision time for Depature: 16:57 Referrals: KELIN SAMPSON MD (PCP/Family) Primary Care Physician DONITA STONE MD Patient Instructions: How to Use a Walker, Pelvic Fracture (DC), Preventing Falls ED, Abrasions ED Add. Discharge Instructions: Use walker for weightbearing as you tolerate it. So if you are having pain when you try to bear weight on the right leg use the walker more to offset your weight and balance and take weight off of the right leg. Similar for activity, limit your activity level based on your pain. You may take acetaminophen 650 mg every 4-6 hours as needed for pain. You may also take ibuprofen 200 mg pills at a dose of 200-400 mg every 4 to 6 hours as needed for pain. You may still try applying ice to help with pain and swelling. You may develop some bruising to the pelvis or upper thigh from the fracture. This is normal and not concerning. If the pain is out of control and you can not get up and bear weight then you may need additional care and assistance until the fractures heal further. It can take at least 6 to 8 weeks to have bones heal from fractures. Keep abrasions clean with soap and water. May apply antibiotic ointment and a dressing if it is bleeding or catching/rubbing on clothing. Check back with your primary care provider or Orthopedics for continued concerns. All discharge instructions reviewed with patient and/or family. Voiced understanding. ENA SINGH MD Sep 30, 2022 17:01
== END 2022-09-30 17:05 | disposition home or self-care (01) ==
LOC: EDUNIT# 16:20 → ER FS 16:21
DX: S32.511A Fracture of superior rim of right pubis, initial encounter for closed fracture (principal); S32.591A Other specified fracture of right pubis, initial encounter for closed fracture; S50.311A Abrasion of right elbow, initial encounter; W01.0XXA Fall on same level from slipping, tripping and stumbling without subsequent striking against object, initial encounter; Y92.007 Garden or yard of unspecified non-institutional (private) residence as the place of occurrence of the external cause
CPT/HCPCS: 99281